=== PATIENT | male | born 1995 | race African-American/Black ===

== ENCOUNTER 2018-03-13 14:55 | Emergency (ER) | payer OTHER ==
[2018-03-13 15:01] VITALS: BP 150/75
[2018-03-13] MEDS ORDERED: LIDOCAINE 1% INJ-PF (10 MG/ML) 30 ML SDV INJ ONE (15:15)
[2018-03-13] MEDS ORDERED: DIPH/PERTUSS(ACELL)/TETANUS VAC/PF 0.5 ML SYR (>=10YO) IM ONE (15:15)
--- NOTE | 2018-03-13 15:15 | ER Document Report ---
HPI - HPI Pain Level: Denies Context: Patient is a 22-year-old male inmate who presents emergency department after slipping in the shower with a laceration to the right upper lip. Patient unaware of his tetanus status. Denies any pain at this time. No evidence of dental injury. Past Medical History - Social History Smoking Status: Former Smoker Family History: Reviewed & Not Pertinent Vertical Provider Document - CONSTITUTIONAL Agree With Documented VS: Yes Notes: PHYSICAL EXAM GENERAL: Alert, interacts well. HEENT: NCAT, pale conjunctiva, extraocular movements intact, pupils PERRL. MMM, Uvula midline. Airway patent. Right upper lip with a 2 cm flap laceration no evidence of dental fracture NEUROLOGICAL: Alert and oriented x4. Normal speech. PSYCH: Normal affect, normal mood. SKIN: Warm, dry, normal turgor. Course - Re-evaluation Re-evalutation: 03/13/18 16:11 Patient is a 22-year-old male hemodynamically stable, no acute distress. Evidence of laceration that was irrigated and closed primarily. Patient educated on absorbable suture wound care. Given strict return precautions and stable for discharge to law enforcement facility - Vital Signs Vital signs: Temp Pulse Resp BP Pulse Ox 98.4 F 75 14 150/75 H 100 03/13/18 15:00 03/13/18 15:00 03/13/18 15:00 03/13/18 15:00 03/13/18 15:00 Discharge - Discharge Clinical Impression: Lip laceration Qualifiers: Encounter type: initial encounter Qualified Code(s): S01.511A - Laceration without foreign body of lip, initial encounter Condition: Good Disposition: HOME, SELF-CARE Additional Instructions: Absorbable Suture Care You have absorbable (dissolving) stitches. The part of the stitch that's below the surface will be absorbed. The outer half of the stitch should fall off. Do not disturb the stitches. If they're in your mouth, don't "play" with them with your tongue or teeth. The time required for the stitches to dissolve depends on the type and thickness of the suture, the amount of blood flow beneath the surface, and the dryness of the location. For example, a stitch in the tongue can dissolve very quickly (3 to 5 days) while the same stitch on the outside of the body might take up to two weeks. If the stitch is causing irritation after the wound is healed, it can be removed. We would be happy to do this for you. If your stitches are hanging loose, you can remove them simply by wiping with a clean gauze pad or a cotton ball. Do not pull on the stitches -- they should wipe away easily. Watch for signs of infection: redness, heat, swelling, pain, and drainage.
== END 2018-03-13 17:10 | disposition home or self-care (01) ==
LOC: ER 14:55
DX: S01.511A Laceration without foreign body of lip, initial encounter (principal); W18.2XXA Fall in (into) shower or empty bathtub, initial encounter; Y92.142 Bathroom in prison as the place of occurrence of the external cause; Z87.891 Personal history of nicotine dependence
CPT/HCPCS: 90471; 90715; 99283